=== PATIENT | male | born 1960 | race Caucasian/White ===

== ENCOUNTER 2017-10-26 17:10 | Inpatient (IN) | payer BC ==
[2017-10-26] VITALS (8 sets, daily range): BP systolic 144–161; BP diastolic 87–94; Ht 185.4 cm; Wt 90.2 kg
[~2017-10-26] VITALS: Ht 185.4 cm; Wt 90.2 kg
[2017-10-26] MEDS ORDERED: ASPIRIN325 MG PO (17:24)
[2017-10-26] MEDS ORDERED: IBUPROFEN800 MG PO (17:25)
[2017-10-26] MEDS ORDERED: MULTIPLE VITAMI1 TA1 PO (17:26)
[2017-10-26] MEDS ORDERED: PROAIR HFA8.5 GM IH (17:27)
[2017-10-26] MEDS ORDERED: TRAZODONE HCL50 MG PO (17:27)
[2017-10-26] MEDS ORDERED: PRINIVIL20 MG PO (17:29)
[2017-10-26] MEDS ORDERED: PROVENTIL/2.5 MG/3 M INH (17:29)
[2017-10-27] VITALS (13 sets, daily range): BP systolic 118–158; BP diastolic 82–98
[2017-10-27 05:48] LABS: BASOPHILS 0.4 % (0-2); EOSINOPHILS 3.4 % (0-7); HEMATOCRIT 38.3 % (42.0-54.0); HEMOGLOBIN 12.1 g/dL (13.5-17.5); IMMATURE GRANULOCYTES 0.4 % (0-5); LYMPHOCYTES 19.2 % (15-50); MCH 26.6 pg (26.0-34.0); MCHC 31.6 g/dL (31.0-37.0); MCV 84.2 fL (80.0-100.0); MEAN PLATELET VOLUME 9.6 fL (7.4-10.4); MONOCYTES 10.7 % (2-11); NEUTROPHILS 65.9 % (40-80); PLATELET COUNT 209 10x3/uL (130-400); RBC 4.55 10x6/uL (4.20-6.10); RDW 14.6 % (11.5-14.5); WBC 5.5 10x3/uL (4.8-10.8)
[2017-10-27 06:24] LABS: ALBUMIN 2.1 g/dL (3.4-5.0); ALKALINE PHOSPHATASE 46 U/L (46-116); ALT (SGPT) 15 U/L (10-68); BILIRUBIN - DIRECT 0.11 mg/dL (0.00-0.30); BILIRUBIN - INDIRECT 0.23 mg/dL (0.00-1.00); BILIRUBIN - TOTAL 0.34 mg/dL (0.2-1.3); CALC OSMOLALITY 267 mosm/kg (275-300); CALCIUM 8.2 mg/dL (8.5-10.1); CARBON DIOXIDE 32.5 mmol/L (21.0-32.0); CHLORIDE - SERUM 99 mmol/L (98-107); CREATININE - SERUM 0.5 mg/dL (0.6-1.3); GLUCOSE 97 mg/dL (74-106); MAGNESIUM - SERUM 1.7 mg/dL (1.8-2.4); PHOSPHOROUS 3.3 mg/dL (2.5-4.9); POTASSIUM - SERUM 3.8 mmol/L (3.5-5.1); PRO BNP 771 pg/mL (0-125); PROTEIN - SERUM 5.1 g/dL (6.4-8.2); SODIUM 135 mmol/L (136-145); UREA NITROGEN 8 mg/dL (7-18); eGFR NON AFRICAN AMERICAN > 90 mL/min (90-120)
== END 2017-10-27 13:20 | disposition short-term general hospital (02) | DRG 208 ==
LOC: OBSVTIME 17:10 → D.ICU 17:10
PROVIDERS: Internal Medicine Nephrology
PROC: 5A1935Z Respiratory Ventilation, Less than 24 Consecutive Hours (ICD-10-PCS; principal; 2017-10-26)
DX: J96.02 Acute respiratory failure with hypercapnia (principal); J18.9 Pneumonia, unspecified organism; J44.1 Chronic obstructive pulmonary disease with (acute) exacerbation; J44.0 Chronic obstructive pulmonary disease with (acute) lower respiratory infection; J96.01 Acute respiratory failure with hypoxia; T20.04XA Burn of unspecified degree of nose (septum), initial encounter; T59.811A Toxic effect of smoke, accidental (unintentional), initial encounter; J70.5 Respiratory conditions due to smoke inhalation; T20.09XA Burn of unspecified degree of multiple sites of head, face, and neck, initial encounter; T31.0 Burns involving less than 10% of body surface; X08.8XXA Exposure to other specified smoke, fire and flames, initial encounter; Y92.003 Bedroom of unspecified non-institutional (private) residence as the place of occurrence of the external cause; I11.0 Hypertensive heart disease with heart failure; I50.9 Heart failure, unspecified; I25.10 Atherosclerotic heart disease of native coronary artery without angina pectoris; E78.5 Hyperlipidemia, unspecified; Z99.81 Dependence on supplemental oxygen; Z78.1 Physical restraint status; G47.30 Sleep apnea, unspecified; I73.9 Peripheral vascular disease, unspecified; I44.7 Left bundle-branch block, unspecified; F17.210 Nicotine dependence, cigarettes, uncomplicated